=== PATIENT | male | born 1950 | race Caucasian/White ===

== ENCOUNTER 2019-02-26 16:16 | Emergency (ER) | payer OTHER ==
[~2019-02-26] VITALS: Ht 180.3 cm; Wt 122.5 kg
[~2019-02-26 16:16] MED LIST: ANCEF 1GM1 GM/50 M2 IV; BACTRIM DS TAB1 EACH PO; CIPRO500 MG PO; CUBICIN500 MG IVPB; DOCUSATE SODIU100 MG PO; DOXYCYCLINE 10100 MG PO; FISH OIL 1,001000 M2 PO; FLOMAX0.4 MG PO; GLIPIZIDE 5 MG T5 MG PO; GLIPIZIDE XL5 MG; LASIX 20 MG TAB20 MG PO; LEVOTHYROXINE0.2 M1; METAMUCIL FIBE3.4 GM PO; NORCO 10-325 T1 EACH PO; NOVOLOG100 UNIT/1 SUBQ; SYNTHROID100 MCG PO; TRAMADOL 50 MG50 MG PO; VANCOMYCIN1 GM/100 M IV
[2019-02-26 16:27] VITALS: BP 179/75
[2019-02-26 16:30] LABS: URINE BILIRUBIN NEGATIVE (Negative); URINE BLOOD NEGATIVE (Negative); URINE CLARITY CLEAR; URINE COLOR YELLOW; URINE GLUCOSE-RANDOM NEGATIVE (Negative); URINE KETONES NEGATIVE (Negative); URINE LEUKOCYTES-REFLEX NEGATIVE (Negative); URINE NITRITE-REFLEX NEGATIVE (Negative); URINE PROTEIN NEGATIVE (Negative); URINE SPECIFIC GRAVITY 1.025 (1.005-1.030); URINE UROBILINOGEN 0.2 E.U./dl (0.2-1.0)
[2019-02-26] MEDS ORDERED: BACTRIM DS TAB1 EACH PO (16:30)
[2019-02-26] MEDS ORDERED: FLOMAX0.4 MG PO (16:34)
== END 2019-02-26 16:42 | disposition home or self-care (01) ==
LOC: M.ERS 16:16
PROVIDERS: Nurse Practitioner Family
DX: R35.0 Frequency of micturition (principal); E11.22 Type 2 diabetes mellitus with diabetic chronic kidney disease; N18.3 Chronic kidney disease, stage 3 (moderate); E03.9 Hypothyroidism, unspecified; Z89.431 Acquired absence of right foot; E66.9 Obesity, unspecified; Z98.890 Other specified postprocedural states; Z88.0 Allergy status to penicillin; Z91.018 Allergy to other foods

== ENCOUNTER → 2021-03-18 | Outpatient (CLI) | payer MEDICARE | LOC: M.WC 08:17 | PROVIDERS: ATTEND Family Medicine | DX: E11.621 Type 2 diabetes mellitus with foot ulcer (principal); L97.521 Non-pressure chronic ulcer of other part of left foot limited to breakdown of skin; E11.51 Type 2 diabetes mellitus with diabetic peripheral angiopathy without gangrene; E11.610 Type 2 diabetes mellitus with diabetic neuropathic arthropathy; E11.22 Type 2 diabetes mellitus with diabetic chronic kidney disease; I12.9 Hypertensive chronic kidney disease with stage 1 through stage 4 chronic kidney disease, or unspecified chronic kidney disease; N18.9 Chronic kidney disease, unspecified; E66.9 Obesity, unspecified; E03.9 Hypothyroidism, unspecified; K21.9 Gastro-esophageal reflux disease without esophagitis; Z68.31 Body mass index [BMI] 31.0-31.9, adult; Z89.421 Acquired absence of other right toe(s) ==

== ENCOUNTER → 2021-03-27 | Outpatient (CLI) | payer MEDICARE | LOC: M.WC 07:45 | PROVIDERS: ATTEND Family Medicine | DX: E11.621 Type 2 diabetes mellitus with foot ulcer (principal); L97.528 Non-pressure chronic ulcer of other part of left foot with other specified severity; E11.51 Type 2 diabetes mellitus with diabetic peripheral angiopathy without gangrene; E11.610 Type 2 diabetes mellitus with diabetic neuropathic arthropathy; E11.22 Type 2 diabetes mellitus with diabetic chronic kidney disease; I12.9 Hypertensive chronic kidney disease with stage 1 through stage 4 chronic kidney disease, or unspecified chronic kidney disease; N18.9 Chronic kidney disease, unspecified; E66.9 Obesity, unspecified; E03.9 Hypothyroidism, unspecified; K21.9 Gastro-esophageal reflux disease without esophagitis; Z68.31 Body mass index [BMI] 31.0-31.9, adult; Z89.421 Acquired absence of other right toe(s) ==